=== PATIENT | male | born 1970 | race Caucasian/White ===

== ENCOUNTER 2023-08-10 17:28 | Emergency (ER) | payer OTHER, MEDICAID, SELFPAY ==
[2023-08-10 17:37] VITALS: BP 144/93; PULSE 93; RESP 18; TEMP 36.6; O2SAT 99
--- NOTE | 2023-08-10 17:48 | ED.DENTAL ---
HPI - Dental/Oral General Chief complaint: Dental/Oral Stated complaint: Toothache Time Seen by Provider: 08/10/23 17:48 Source: patient Mode of arrival: ambulatory Limitations: no limitations History of Present Illness HPI Narrative: 53-year-old male presents with complaint left upper dental pain. Patient reports that he had a crown that fell to his. Had a temporary crown placed. States temporary crown then fell off and had to go back to dentist to have temporary crown put back on. Patient has appointment on for permanent crown to be placed. Patient is concerned that he has dental infection. Reports worsening of left upper dental pain. Patient states that he has not been able to completely open mouth since 1st dental procedure. States approximately 2 weeks ago. The next time he went back to have temporary crown replaced they forced open his mouth. States he told them he is not able to open his mouth, has pain at left TMJ and they did not seem concerned. Patient plans to mention this again at next until appointment. This time he only wants antibiotic due to concern for infection. All systems reviewed and negative except as noted above. Related Data Allergies Allergy/AdvReac Type Severity Reaction Status Date / Time No Known Allergies Allergy Unverified 08/10/23 17:40 Review of Systems Review of Systems: CONSTITUTIONAL: Denies fever, chills, or sweats. EYES: Denies visual changes, redness, or discharge. ENT: Denies rhinorrhea, congestion, sore throat, or otalgia. MOUTH: Left upper dental pain, pain left TMJ CARDIOVASCULAR: Denies chest pain, palpitations, or edema. RESPIRATORY: Denies cough or dyspnea. GASTROINTESTINAL: Denies abdominal pain, nausea, vomiting, or diarrhea. GENITOURINARY: Denies dysuria or hematuria. SKIN: Denies rash or itching. MUSCULOSKELETAL: Denies back pain, joint pain, or myalgia. NEUROLOGIC: Denies headache, numbness, or weakness. PSYCHIATRIC: Denies anxiety or depression. All other systems reviewed are negative, except as documented in HPI. [facility] Family History Family History (Updated 06/08/22 @ 15:23 by Daniela Calzada MA) Father History of ETOH abuse Cerebrovascular accident Mother Cerebrovascular accident Grandparent Diabetes mellitus Social History Social History (Updated 06/08/22 @ 15:26 by Daniela Calzada MA) Smoking status: Never smoker Alcohol use details: wine/ whiskey 4 times a month Substance use: never Substance use type: does not use Concerned About Future Housing: No Difficulty Paying Gas/Electric Bills: No Difficulty Paying for Meds: No Currently Unemployed: No Education: High School Diploma/GED Difficulty w/ Childcare or Family Care: No Living arrangements: with family Occupation/Education: occupation 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 There is no relevant family history pertinent to the presenting complaint. Exam Narrative: GENERAL: This is a well-nourished, well-developed patient, in no apparent distress. HEAD: normocephalic, atraumatic. EYES: PERRL. Sclera clear/white. Vision is grossly intact. EARS: External ears normal NOSE: External nose normal THROAT: Mucous membranes moist, posterior pharynx clear. MOUth: tenderness on palpation of L side roof of mouth, no swelling, erythema or fluctuance concerning for abscess. tenderness to L TMJ and to L maxillary. mild swelling noted to L cheek. NECK: Neck supple, non-tender without lymphadenopathy, masses or thyromegaly. CARDIOVASCULAR: Regular rate and rhythm without murmurs, gallops, or rubs. RESPIRATORY: Clear to auscultation. Breath sounds equal bilaterally. No wheezes, ra
[2023-08-10 17:51] VITALS: BP 144/93; PULSE 93; RESP 18; TEMP 36.6; O2SAT 99
== END 2023-08-10 18:00 | disposition home or self-care (01) ==
PROVIDERS: Emergency Provider Nurse Practitioner Family; PCP Family Medicine
DX: K08.89 Other specified disorders of teeth and supporting structures (principal)
CPT/HCPCS: 99213; G0463